=== PATIENT | female | born 1950 | race Caucasian/White ===

== ENCOUNTER 2023-02-28 19:33 | Inpatient (IN) | payer OTHER, MEDICAID ==
[~2023-02-28] VITALS: Ht 165.1 cm; Wt 118.2 kg
[2023-02-28] MEDS ORDERED: SODIUM CHLORIDE 0.9% 500 ML IV ONE (19:45)
[2023-02-28 20:05] LABS: Basophils # (auto) 0.1 10 ^3/uL (0-0.2); Red Cell Distribution Width 16.1 % (11.8-14.3)
[2023-02-28 20:06] LABS: Basophils % (auto) 0.4 % (0.0-2.0); Eosinophils # (auto) 0.1 10 ^3/uL (0-0.8); Eosinophils % (auto) 0.3 % (0.0-7.0); Hematocrit 16.4 % (36.0-46.0); Lymphocytes # (auto) 4.6 10 ^3/uL (0.4-5.4); Lymphocytes % (auto) 25.6 % (10.0-50.0); Mean Corpuscular Hemoglobin 30.9 pg (28.0-32.0); Mean Corpuscular Hgb Conc. 28.6 g/dL (32.0-36.0); Mean Corpuscular Volume 107.8 fL (80.0-100.0); Monocytes # (auto) 0.8 10 ^3/uL (0-1.3); Monocytes % (auto) 4.3 % (0.0-12.0); Neutrophils # (auto) 12.4 10 ^3/uL (1.6-8.6); Neutrophils % (auto) 69.4 % (37.0-80.0); Nucleated Red Blood Cells % 0.2 %; Red Blood Cells 1.53 10^6/uL (4.0-5.20); White Blood Cell 17.9 10^3/uL (4.4-10.8)
[2023-02-28 20:13] LABS: Hemoglobin 4.7 g/dL (12.2-16.2)
[2023-02-28 20:14] LABS: Albumin 1.8 g/dL (3.4-5.0); BUN/Creatinine Ratio 29.2 (10.0-20.0); Calcium 7.2 mg/dL (8.5-10.1); Potassium 4.6 mmol/L (3.5-5.1)
[2023-02-28 20:17] LABS: Bilirubin, Total 0.1 mg/dL (0.2-1.0); Total Protein 3.7 g/dL (6.4-8.2)
[2023-02-28 20:35] VITALS: PULSE 115; RESP 24; O2SAT 98
[2023-02-28] MEDS ORDERED: PANTOPRAZOLE 80 MG in SODIUM CHL 0.9% 100 ML IV ONE (21:00)
[2023-02-28] MEDS ORDERED: cefTRIAXone 1GM/50ML D5W 50 ML IV ONE (21:00)
[2023-02-28] MEDS ORDERED: LACTATED RINGER'S 2,700 ML IV ONE (21:00)
[2023-02-28] MEDS ORDERED: diphenhdrAMINE HCL 50 MG/1 ML VL IV ONE (21:00)
[2023-02-28] MEDS ORDERED: PANTOPRAZOLE 40mg/50ML NS AE 50 ML IV ONE (21:00)
[2023-02-28 21:10] LABS: Magnesium 2.2 mg/dL (1.6-2.6)
[2023-02-28 21:24] LABS: INR 1.15 (0.9-1.15); Partial Thromboplastin Time 24.9 SEC (24.5-34.5)
[2023-02-28 21:50] LABS: Lactic Acid w/Reflex 11.4 mmol/L (0.4-2.0)
[2023-02-28] MEDS ORDERED: PANTOPRAZOLE 40 MG/10 ML VIAL INJ IV ONE ×2 (23:14→23:18)
[2023-03-01] MEDS: SODIUM CHLORIDE 0.9% 1,000 ML IV SCH ×4 (02:45→15:27)
[2023-03-01] MEDS ORDERED: DEXTROSE (50%) 50ML SYRG IV PRN ×2 (02:45→13:45)
[2023-03-01 03:00] LABS: Basophils # (auto) 0 10 ^3/uL (0-0.2); Eosinophils # (auto) 0 10 ^3/uL (0-0.8); Hemoglobin 7.6 g/dL (12.2-16.2)
[2023-03-01 03:02] LABS: Basophils % (auto) 0.2 % (0.0-2.0); Eosinophils % (auto) 0.1 % (0.0-7.0); Hematocrit 22.6 % (36.0-46.0); Lymphocytes # (auto) 1.8 10 ^3/uL (0.4-5.4); Lymphocytes % (auto) 14.5 % (10.0-50.0); Mean Corpuscular Hemoglobin 30.5 pg (28.0-32.0); Mean Corpuscular Hgb Conc. 33.5 g/dL (32.0-36.0); Mean Corpuscular Volume 91.2 fL (80.0-100.0); Monocytes # (auto) 0.7 10 ^3/uL (0-1.3); Neutrophils # (auto) 9.8 10 ^3/uL (1.6-8.6); Neutrophils % (auto) 79.2 % (37.0-80.0); Nucleated Red Blood Cells % 0.1 %; Red Blood Cells 2.48 10^6/uL (4.0-5.20); Red Cell Distribution Width 16.2 % (11.8-14.3); White Blood Cell 12.3 10^3/uL (4.4-10.8)
[2023-03-01] MEDS ORDERED: metroNIDAZOLE 500MG/100ML 100 ML IV ONE (03:15)
[2023-03-01] MEDS ORDERED: NITROGLYCERIN 0.4 MG SL TAB SL PRN (03:30)
[2023-03-01] MEDS ORDERED: ASPirin 81 mg TAB PO ONE (03:30)
[2023-03-01] MEDS ORDERED: ACETAMINOPHEN 325 MG TAB PO PRN (03:30)
[2023-03-01] MEDS ORDERED: ONDANSETRON HCL 4 MG/2 ML VIAL IV PRN (03:30)
[2023-03-01] MEDS ORDERED: MORPHINE SULFATE INJ 2 MG/ml SYRG IV PRN (03:30)
[2023-03-01] MEDS ORDERED: VANCOMYCIN PER PHARMACY 0 MG IV SCH (03:30)
[2023-03-01] MEDS ORDERED: DOCUSATE SOD 100 MG CAP PO PRN (03:30)
[2023-03-01 04:27] LABS: Albumin 1.7 g/dL (3.4-5.0); BUN/Creatinine Ratio 35.8 (10.0-20.0); Bilirubin, Total 0.5 mg/dL (0.2-1.0); Magnesium 1.4 mg/dL (1.6-2.6); Potassium 4.5 mmol/L (3.5-5.1); Total Protein 3.4 g/dL (6.4-8.2)
[2023-03-01] MEDS: ACCU-CHEK COMFORT CURVE STRIP VI SCH ×9 (04:30→22:11)
[2023-03-01] MEDS ORDERED: InsuLIN REG 1unit/0.01ml Soln (100units/ml) ONE (04:48)
[2023-03-01] MEDS: InsuLIN R (HUMAN) 100 UNITS in SODIUM CHL 0.9% 99 ML IV SCH ×2 (05:04→06:04)
[2023-03-01 05:30] LABS: Calcium 5.8 mg/dL (8.5-10.1)
[2023-03-01 05:32] LABS: Urine Bacteria MANY /hpf (None Seen); Urine Blood 3+ /uL (Negative); Urine Hyaline Cast FEW /lpf (0 - 2); Urine Mucus FEW (None Seen); Urine Specific Gravity 1.017 (1.001-1.035); Urine WBC 6 /hpf (0 - 5)
[2023-03-01] MEDS ORDERED: VANCOMYCIN 1GM/250ML 250 ML IV ONE (06:30)
[2023-03-01] MEDS ORDERED: SODIUM BICARBONATE 8.4% INJ 50ML SYRINGE ONE (06:44)
[2023-03-01] MEDS ORDERED: SODIUM CHLORIDE 0.9% 1,000 ML IV SCH (06:45)
[2023-03-01] MEDS ORDERED: LEVOTHYROXINE SODIUM 100 MCG TAB PO SCH (07:00)
[2023-03-01] MEDS: SODIUM BICARBONATE 50ML VIAL 50 ML in SOD CHL 0.45% 1,000 ML IV SCH (07:47)
[2023-03-01] MEDS: ASPirin 81 mg TAB PO SCH ×2 (10:00→10:11)
[2023-03-01] MEDS: FAMOTIDINE (10MG/ML) 2ML VL IV SCH ×2 (10:11→22:22)
[2023-03-01] MEDS: AZITHROMYCIN 500MG/ 250ML 250 ML IV SCH (10:12)
[2023-03-01 10:30] LABS: Potassium 4.6 mmol/L (3.5-5.1)
[2023-03-01 10:33] LABS: BUN/Creatinine Ratio 39.1 (10.0-20.0)
[2023-03-01 10:41] VITALS: PULSE 82; RESP 16; O2SAT 98
[2023-03-01] MEDS: PANTOPRAZOLE 40mg/50ML NS AE 50 ML IV SCH ×3 (13:03→22:22)
[2023-03-01 15:16] LABS: BUN/Creatinine Ratio 33.1 (10.0-20.0); Calcium 7.4 mg/dL (8.5-10.1); Potassium 4.6 mmol/L (3.5-5.1)
[2023-03-01 17:00] VITALS: PULSE 80; RESP 16; O2SAT 98
[2023-03-01] MEDS: InsuLIN REG 1unit/0.01ml Soln (100units/ml) SC SCH ×2 (17:00→22:00)
[2023-03-01] MEDS ORDERED: VANCOMYCIN 1GM/250ML 250 ML IV SCH (19:00)
[2023-03-01 20:25] VITALS: PULSE 82; RESP 18; O2SAT 100
[2023-03-01 21:51] LABS: BUN/Creatinine Ratio 30.8 (10.0-20.0); Calcium 7.6 mg/dL (8.5-10.1); Potassium 4.4 mmol/L (3.5-5.1)
[2023-03-01 22:00] VITALS: BP 141/65; PULSE 81; RESP 17; TEMP 97.9; O2SAT 100
[2023-03-01] MEDS: SUCRALFATE 1 GM/10 ML ORAL SUSP PO SCH (22:23)
[2023-03-01 22:49] VITALS: BP 141/65; PULSE 81; RESP 18; TEMP 97.9; O2SAT 100
[2023-03-01] MEDS ORDERED: LEVO100T8 PO (22:51)
[2023-03-01] MEDS ORDERED: METF-372 PO (22:51)
[2023-03-01] MEDS ORDERED: ALEN70TA74 PO (22:52)
[2023-03-02] VITALS (8 sets, daily range): BP systolic 123–156; BP diastolic 55–83; PULSE 74–84; RESP 17–20; TEMP 97.5–97.9; O2SAT 94–99
[2023-03-02] MEDS: SODIUM CHLORIDE 0.9% 1,000 ML IV SCH ×4 (00:07→17:55)
[2023-03-02] MEDS: PANTOPRAZOLE 40mg/50ML NS AE 50 ML IV SCH ×5 (03:56→22:14)
[2023-03-02] MEDS ORDERED: SODIUM BICARBONATE 8.4 % INJ 50ML VIAL IV ONE (04:14)
[2023-03-02] MEDS: SODIUM BICARBONATE 50ML VIAL 50 ML in SOD CHL 0.45% 1,000 ML IV SCH ×2 (05:08→21:30)
[2023-03-02] MEDS: InsuLIN REG 1unit/0.01ml Soln (100units/ml) SC SCH ×4 (06:01→21:30)
[2023-03-02] MEDS: ACCU-CHEK COMFORT CURVE STRIP VI SCH ×4 (06:01→21:30)
[2023-03-02] MEDS: SUCRALFATE 1 GM/10 ML ORAL SUSP PO SCH ×4 (06:02→22:13)
[2023-03-02 06:30] LABS: Basophils # (auto) 0.1 10 ^3/uL (0-0.2); Basophils % (auto) 0.6 % (0.0-2.0); Eosinophils # (auto) 0.5 10 ^3/uL (0-0.8); Eosinophils % (auto) 4.3 % (0.0-7.0); Hematocrit 25.7 % (36.0-46.0); Hemoglobin 8.7 g/dL (12.2-16.2); Lymphocytes # (auto) 3.6 10 ^3/uL (0.4-5.4); Lymphocytes % (auto) 31.9 % (10.0-50.0); Mean Corpuscular Hemoglobin 30.8 pg (28.0-32.0); Mean Corpuscular Hgb Conc. 33.8 g/dL (32.0-36.0); Monocytes # (auto) 0.6 10 ^3/uL (0-1.3); Monocytes % (auto) 5.6 % (0.0-12.0); Neutrophils # (auto) 6.5 10 ^3/uL (1.6-8.6); Neutrophils % (auto) 57.6 % (37.0-80.0); Nucleated Red Blood Cells % 0.1 %; Red Blood Cells 2.82 10^6/uL (4.0-5.20); Red Cell Distribution Width 16.8 % (11.8-14.3); White Blood Cell 11.3 10^3/uL (4.4-10.8)
[2023-03-02 07:00] LABS: Potassium 3.7 mmol/L (3.5-5.1)
[2023-03-02 07:05] LABS: Albumin 2.2 g/dL (3.4-5.0); BUN/Creatinine Ratio 25.7 (10.0-20.0); Calcium 7.4 mg/dL (8.5-10.1)
[2023-03-02 07:07] LABS: Bilirubin, Total 0.3 mg/dL (0.2-1.0); Total Protein 4.3 g/dL (6.4-8.2)
[2023-03-02] MEDS ORDERED: LIDOCAINE VISCOUS 2% 15ML UD ONE (08:21)
[2023-03-02] MEDS ORDERED: SODIUM CHLORIDE LOCK 10 ML ONE (08:21)
[2023-03-02] MEDS ORDERED: diphenhdrAMINE HCL 50 MG/1 ML VL ONE (08:22)
[2023-03-02] MEDS ORDERED: MIDAZOLAM HCL 5 MG/ML-1ML VIAL ONE (08:22)
[2023-03-02] MEDS ORDERED: fentaNYL CITRATE 100 MCG/2 ML VL ONE (08:22)
[2023-03-02] MEDS ORDERED: VANCOMYCIN 1GM/250ML 250 ML IV SCH (10:00)
[2023-03-02] MEDS: LEVOTHYROXINE SODIUM 100 MCG/5 ML INJ IV SCH (10:29)
[2023-03-02] MEDS: FAMOTIDINE (10MG/ML) 2ML VL IV SCH (10:29)
[2023-03-02] MEDS: AZITHROMYCIN 500MG/ 250ML 250 ML IV SCH (10:29)
[2023-03-02] MEDS: HYDROcodone-ACET 5/325MG TAB PO PRN (10:52)
[2023-03-02] MEDS ORDERED: NALOXONE HCL 0.4 MG/ML VIAL ONE (11:14)
[2023-03-02] MEDS ORDERED: FLUMAZENIL 0.1 MG/ML INJ 10ML MDV IV ONE (11:14)
[2023-03-02] MEDS ORDERED: cefTRIAXone 1GM/50ML D5W 50 ML IV ONE (14:00)
[2023-03-02] MEDS: DOXYCYCLINE 100 MG TAB/CAP PO SCH (22:13)
[2023-03-03] VITALS (7 sets, daily range): BP systolic 129–156; BP diastolic 64–74; PULSE 69–87; RESP 17–20; TEMP 97.8–98.2; O2SAT 96–98
[2023-03-03] MEDS: PANTOPRAZOLE 40mg/50ML NS AE 50 ML IV SCH ×4 (03:40→18:34)
[2023-03-03] MEDS: SODIUM CHLORIDE 0.9% 1,000 ML IV SCH ×2 (03:41→07:25)
[2023-03-03 05:24] LABS: Basophils # (auto) 0.1 10 ^3/uL (0-0.2); Basophils % (auto) 0.9 % (0.0-2.0); Eosinophils # (auto) 0.6 10 ^3/uL (0-0.8); Eosinophils % (auto) 5.7 % (0.0-7.0); Hematocrit 27.5 % (36.0-46.0); Hemoglobin 9.1 g/dL (12.2-16.2); Lymphocytes # (auto) 3.2 10 ^3/uL (0.4-5.4); Lymphocytes % (auto) 32.1 % (10.0-50.0); Mean Corpuscular Hemoglobin 31.2 pg (28.0-32.0); Mean Corpuscular Volume 94.4 fL (80.0-100.0); Monocytes # (auto) 0.5 10 ^3/uL (0-1.3); Monocytes % (auto) 4.9 % (0.0-12.0); Neutrophils # (auto) 5.6 10 ^3/uL (1.6-8.6); Neutrophils % (auto) 56.4 % (37.0-80.0); Nucleated Red Blood Cells % 0.1 %; Red Blood Cells 2.92 10^6/uL (4.0-5.20); Red Cell Distribution Width 17.4 % (11.8-14.3); White Blood Cell 9.9 10^3/uL (4.4-10.8)
[2023-03-03 05:35] LABS: Albumin 2.2 g/dL (3.4-5.0); Calcium 7.4 mg/dL (8.5-10.1); Potassium 3.8 mmol/L (3.5-5.1)
[2023-03-03 05:37] LABS: BUN/Creatinine Ratio 11.3 (10.0-20.0); Bilirubin, Total 0.3 mg/dL (0.2-1.0); Total Protein 4.8 g/dL (6.4-8.2)
[2023-03-03] MEDS: ACCU-CHEK COMFORT CURVE STRIP VI SCH ×4 (06:03→21:07)
[2023-03-03] MEDS: InsuLIN REG 1unit/0.01ml Soln (100units/ml) SC SCH ×5 (06:04→21:18)
[2023-03-03] MEDS: SUCRALFATE 1 GM/10 ML ORAL SUSP PO SCH ×4 (06:17→21:09)
[2023-03-03] MEDS: LEVOTHYROXINE SODIUM 100 MCG/5 ML INJ IV SCH (09:05)
[2023-03-03] MEDS: cefTRIAXone 1GM/50ML D5W 50 ML IV SCH (09:11)
[2023-03-03] MEDS: DOXYCYCLINE 100 MG TAB/CAP PO SCH ×2 (09:13→21:09)
[2023-03-03] MEDS: HYDROcodone-ACET 5/325MG TAB PO PRN (21:17)
[2023-03-04] VITALS (7 sets, daily range): BP systolic 135–153; BP diastolic 48–66; PULSE 72–78; RESP 17–22; TEMP 97.7–98.5; O2SAT 97–100
[2023-03-04] MEDS: PANTOPRAZOLE 40mg/50ML NS AE 50 ML IV SCH ×3 (00:11→09:41)
[2023-03-04 05:56] LABS: Basophils # (auto) 0.1 10 ^3/uL (0-0.2); Basophils % (auto) 0.8 % (0.0-2.0); Eosinophils # (auto) 0.3 10 ^3/uL (0-0.8); Eosinophils % (auto) 4.1 % (0.0-7.0); Hematocrit 26.5 % (36.0-46.0); Hemoglobin 8.9 g/dL (12.2-16.2); Lymphocytes # (auto) 2.8 10 ^3/uL (0.4-5.4); Lymphocytes % (auto) 34.1 % (10.0-50.0); Mean Corpuscular Hgb Conc. 33.6 g/dL (32.0-36.0); Mean Corpuscular Volume 92.3 fL (80.0-100.0); Monocytes # (auto) 0.5 10 ^3/uL (0-1.3); Monocytes % (auto) 6.6 % (0.0-12.0); Neutrophils # (auto) 4.4 10 ^3/uL (1.6-8.6); Neutrophils % (auto) 54.4 % (37.0-80.0); Red Blood Cells 2.88 10^6/uL (4.0-5.20); Red Cell Distribution Width 16.5 % (11.8-14.3); White Blood Cell 8.1 10^3/uL (4.4-10.8)
[2023-03-04] MEDS: InsuLIN REG 1unit/0.01ml Soln (100units/ml) SC SCH ×4 (06:00→21:41)
[2023-03-04] MEDS: ACCU-CHEK COMFORT CURVE STRIP VI SCH ×4 (06:00→22:48)
[2023-03-04 06:05] LABS: Potassium 3.5 mmol/L (3.5-5.1)
[2023-03-04 06:13] LABS: Albumin 2.4 g/dL (3.4-5.0); BUN/Creatinine Ratio 7.2 (10.0-20.0); Bilirubin, Total 0.4 mg/dL (0.2-1.0); Calcium 8.4 mg/dL (8.5-10.1); Total Protein 4.9 g/dL (6.4-8.2)
[2023-03-04] MEDS: HYDROcodone-ACET 5/325MG TAB PO PRN (06:36)
[2023-03-04] MEDS: SUCRALFATE 1 GM/10 ML ORAL SUSP PO SCH ×4 (06:36→21:38)
[2023-03-04] MEDS: cefTRIAXone 1GM/50ML D5W 50 ML IV SCH (09:40)
[2023-03-04] MEDS: LEVOTHYROXINE SODIUM 100 MCG/5 ML INJ IV SCH (09:41)
[2023-03-04] MEDS: DOXYCYCLINE 100 MG TAB/CAP PO SCH ×2 (09:41→21:38)
[2023-03-04] MEDS ORDERED: LEVOTHYROXINE SODIUM 100 MCG/5 ML INJ IV SCH (11:30)
[2023-03-04] MEDS ORDERED: LEVOTHYROXINE SODIUM 100 MCG/5 ML INJ IV ONE (11:30)
[2023-03-04] MEDS: PANTOPRAZOLE 40 MG TAB PO SCH (21:37)
[2023-03-05 05:00] VITALS: BP 139/66; PULSE 84; RESP 19; TEMP 98.2; O2SAT 96
[2023-03-05] MEDS: SUCRALFATE 1 GM/10 ML ORAL SUSP PO SCH ×2 (06:21→11:44)
[2023-03-05] MEDS: ACCU-CHEK COMFORT CURVE STRIP VI SCH ×2 (06:22→11:44)
[2023-03-05] MEDS: InsuLIN REG 1unit/0.01ml Soln (100units/ml) SC SCH ×2 (06:46→11:47)
[2023-03-05 06:59] LABS: Basophils # (auto) 0.1 10 ^3/uL (0-0.2); Basophils % (auto) 0.9 % (0.0-2.0); Eosinophils # (auto) 0.5 10 ^3/uL (0-0.8); Eosinophils % (auto) 5.8 % (0.0-7.0); Hematocrit 27.7 % (36.0-46.0); Hemoglobin 9.4 g/dL (12.2-16.2); Lymphocytes # (auto) 2.8 10 ^3/uL (0.4-5.4); Lymphocytes % (auto) 33.7 % (10.0-50.0); Mean Corpuscular Hemoglobin 31.3 pg (28.0-32.0); Mean Corpuscular Volume 91.9 fL (80.0-100.0); Monocytes # (auto) 0.6 10 ^3/uL (0-1.3); Neutrophils # (auto) 4.4 10 ^3/uL (1.6-8.6); Neutrophils % (auto) 52.6 % (37.0-80.0); Red Blood Cells 3.01 10^6/uL (4.0-5.20); Red Cell Distribution Width 16.7 % (11.8-14.3); White Blood Cell 8.3 10^3/uL (4.4-10.8)
[2023-03-05 07:12] LABS: Albumin 2.5 g/dL (3.4-5.0); BUN/Creatinine Ratio 5.6 (10.0-20.0); Calcium 8.5 mg/dL (8.5-10.1); Potassium 3.5 mmol/L (3.5-5.1)
[2023-03-05 07:15] LABS: Bilirubin, Total 0.4 mg/dL (0.2-1.0); Total Protein 5.2 g/dL (6.4-8.2)
[2023-03-05 08:00] VITALS: BP 150/65; PULSE 74; PULSE 77; RESP 18; TEMP 97.8; O2SAT 98
[2023-03-05 09:00] VITALS: BP 150/65; PULSE 77; RESP 18; TEMP 97.8; O2SAT 98
[2023-03-05] MEDS: PANTOPRAZOLE 40 MG TAB PO SCH (09:15)
[2023-03-05] MEDS: DOXYCYCLINE 100 MG TAB/CAP PO SCH (09:15)
[2023-03-05] MEDS: cefTRIAXone 1GM/50ML D5W 50 ML IV SCH (09:16)
[2023-03-05] MEDS ORDERED: LEVO150T10 PO (09:45)
[2023-03-05] MEDS ORDERED: SUCR1TAB PO (09:45)
[2023-03-05] MEDS ORDERED: PANT40T PO (09:45)
[2023-03-05] MEDS ORDERED: LEVO500T91 PO (09:45)
[2023-03-05] MEDS ORDERED: FERR-7 PO (09:46)
[2023-03-05] MEDS ORDERED: LEVOTHYROXINE SODIUM 100 MCG/5 ML INJ IV SCH (10:00)
[2023-03-05 10:38] VITALS: TEMP 36.6
== END 2023-03-05 11:53 | disposition home or self-care (01) | DRG 871 ==
LOC: ER 19:33 → EDBD 19:33 → TELE 03-01 03:30 → TELE-EAST 03-01 20:30
PROVIDERS: ADMIT Family Medicine; ATTEND Family Medicine
PROC: 30233N1 Transfusion of Nonautologous Red Blood Cells into Peripheral Vein, Percutaneous Approach (ICD-10-PCS; principal; 2023-02-28)
PROC: 0DB98ZX Excision of Duodenum, Via Natural or Artificial Opening Endoscopic, Diagnostic (ICD-10-PCS; 2023-03-02)
PROC: 0DB78ZX Excision of Stomach, Pylorus, Via Natural or Artificial Opening Endoscopic, Diagnostic (ICD-10-PCS; 2023-03-02)
DX: A41.9 Sepsis, unspecified organism (principal); E11.10 Type 2 diabetes mellitus with ketoacidosis without coma; R65.21 Severe sepsis with septic shock; K26.4 Chronic or unspecified duodenal ulcer with hemorrhage; K85.90 Acute pancreatitis without necrosis or infection, unspecified; K29.71 Gastritis, unspecified, with bleeding; K25.4 Chronic or unspecified gastric ulcer with hemorrhage; K29.81 Duodenitis with bleeding; J18.9 Pneumonia, unspecified organism; N17.9 Acute kidney failure, unspecified; N13.6 Pyonephrosis; D62 Acute posthemorrhagic anemia; E03.9 Hypothyroidism, unspecified; E66.9 Obesity, unspecified; Z68.26 Body mass index [BMI] 26.0-26.9, adult; D50.0 Iron deficiency anemia secondary to blood loss (chronic); K31.7 Polyp of stomach and duodenum; E78.5 Hyperlipidemia, unspecified; E86.0 Dehydration; E87.8 Other disorders of electrolyte and fluid balance, not elsewhere classified; E88.09 Other disorders of plasma-protein metabolism, not elsewhere classified; I10 Essential (primary) hypertension; K76.0 Fatty (change of) liver, not elsewhere classified; G89.29 Other chronic pain; R79.89 Other specified abnormal findings of blood chemistry; K21.9 Gastro-esophageal reflux disease without esophagitis; Z80.8 Family history of malignant neoplasm of other organs or systems; Z88.0 Allergy status to penicillin; Z90.49 Acquired absence of other specified parts of digestive tract
CPT/HCPCS: 36415; 36430; 36600; 43239; 71045; 74176; 76642; 80048; 80053; 81001; 82010; 82805; 82962; 83036; 83605; 83615; 83690; 83735; 83880; 83930; 84100; 84155; 84165; 84439; 84443; 84484; 85025; 85045; 85610; 85730; 86850; 86880; 86900; 86901; 86920; 87040; 87086; 93005; 93306; 96361; 96365; 96366; 96367; 99291; C9113; G0378; J0696; J1815; J2250; J3490

== ENCOUNTER 2023-12-14 11:20 | Emergency (ER) | payer OTHER, MEDICAID ==
[~2023-12-14] VITALS: Ht 165.1 cm; Wt 73.6 kg
[~2023-12-14 11:20] MED LIST: ALEN70TA74 PO; FERR-7 PO; LEVO100T8 PO; LEVO150T10 PO; LEVO500T91 PO; METF-372 PO; PANT40T PO; SUCR1TAB PO
[2023-12-14 15:24] LABS: Urine Bacteria FEW /hpf (None Seen); Urine Blood TRACE /uL (Negative); Urine Clarity Turbid (Clear); Urine Color Light-Yellow (Yellow); Urine Mucus FEW (None Seen); Urine Protein, UAD TRACE (Negative); Urine Specific Gravity 1.018 (1.001-1.035); Urine Urobilinogen Normal (Negative); Urine WBC 397 /hpf (0 - 5)
[2023-12-14] MEDS ORDERED: LEVO500T91 PO (15:44)
[2023-12-14 15:50] VITALS: BP 121/55; PULSE 83; RESP 15; TEMP 97.9; O2SAT 98
== END 2023-12-14 15:58 | disposition home or self-care (01) ==
LOC: EDBD 11:20 → ER 11:20 → EDUNIT# 11:20 → ER 15:58
DX: R91.1 Solitary pulmonary nodule (principal); N39.0 Urinary tract infection, site not specified; E11.9 Type 2 diabetes mellitus without complications; Z90.49 Acquired absence of other specified parts of digestive tract; Z88.0 Allergy status to penicillin
CPT/HCPCS: 74176; 81001

== ENCOUNTER 2024-10-10 17:49 | Inpatient (IN) | payer OTHER, MEDICAID ==
[~2024-10-10] VITALS: Ht 152.4 cm; Wt 75.0 kg
--- NOTE | 2024-10-10 18:01 | ECG ---
[facility] Test Date: 2024-10-10 Test Time: 17:56:44 Pat Name: KIN MCCLELLAND Department: ER Room: Gender: F Machine Cutter: LUZ : 1950 Requested By: CADE ROSENBERG Order Number: [id number] Reading MD: Measurements Intervals [place] Rate: 84 P: 44 UT: 170 QRS: -17 QRSD: 89 T: 53 QT: 391 QTc: 463 Interpretive Statements Sinus rhythm Ventricular premature complex Borderline left axis deviation Anterior infarct, old Please click the below link to view image of tracing.
--- NOTE | 2024-10-10 18:05 | ED.PDOC ---
HPI Comments 74 y.o female with PMHx of DM, hyperlipidemia and thyroid disease, presents to the ED for a chief complaint of right sided chest pain associated with chills that started earlier today. Patient went to urgent care and 911 was called due to ongoing chest pain. Patient describes pain as sharp, intermittent, non radiating and has no alleviating or precipitating factors. Patient denies any active pain at this time, nausea, vomiting, fever, leg swellings. She also denies substance or alcohol use and quit tobacco use one year ago. Chief Complaint: Chest Pain Time Seen by MD: 17:50 Primary Care Provider: TRIPP Reviewed Notes: Nurses Notes, Medications, Allergies Allergies: Coded Allergies: Penicillins (Verified Allergy, Mild, 03/02/23) SPOKE TO PT. PER PT, TRIED PCN BY MOUTH >10 YEARS AGO, EXPERIENCED ABDOMINAL PAIN, NAUSEA/VOMITING. DENIED SOB, FACIAL/TONGUE SWELLING. NEVER RE-CHALLENGED WITH PCN OR CEPHALOSPORIN - LONNIE T 03/02/23 Uncoded Allergies: ALL CILLIN'S (Allergy, Severe, 10/10/24) Home Meds Active Scripts Levofloxacin Hemihydrate (LEVAQUIN 500 MG) 500 Mg Tab, 500 MG PO DAILY for 7 Days, #7 TAB Prov:RACHEL WARD MD 12/14/23 Ferrous Sulfate (Iron) 325 Mg Tab, 325 MG PO BID, #180 TAB Prov:MARK WORLEY MD 03/05/23 Levothyroxine Sodium (Levothyroxine Sodium) 150 Mcg Tab, 1 TAB PO DAILY, #90 TAB 1 Refill Prov:MARK WORLEY MD 03/05/23 Levofloxacin Hemihydrate (LEVAQUIN 500 MG) 500 Mg Tab, 1 TAB PO DAILY, #7 TAB Prov:MARK WORLEY MD 03/05/23 Sucralfate (Sucralfate) 1 Gm Tab, 1 GM PO QID, #120 TAB Prov:MARK WORLEY MD 03/05/23 Pantoprazole Sodium Sesquihydr (Pantoprazole Sodium) 40 Mg Tab, 40 MG PO BID, #60 TAB Prov:MARK WORLEY MD 03/05/23 Reported Medications Alendronate Sodium (Alendronate Sodium) 70 Mg Tab, 1 TAB PO QWEEKLY, #4 TAB 3 Refills 03/01/23 Metformin Hydrochloride (Metformin Hcl) 1,000 Mg Tab, 1 TAB PO BID 03/01/23 Levothyroxine Sodium (Levothyroxine Sodium) 100 Mcg Tab, 1 TAB PO QAM 03/01/23 Information Source: Patient, Emergency Med Personnel Mode of Arrival: EMS Severity: Moderate Timing: Hours Duration: Since onset Location: Chest (R) Radiation: No Radiation Quality: Sharp Onset: At Rest Cardiac Risk Factors: Smoker, Hyperlipidemia, HTN PE Risk Factors: None History of: None Modifying Factors: Nothing Associated Signs and Symptoms: Other Past Medical History PAST MEDICAL HISTORY: DM, High Lipids, Thyroid, UTI'S Surgical History: Cholecystectomy, Tonsillectomy, Tubal Ligation LITERATURE PROFESSOR History: No Pertinent LITERATURE PROFESSOR History Family History Family History: Family hx of Cancer Social History Smoker: Quit Greater Than 1 Year, Cigarettes Alcohol: Rarely Drugs: Denies Drug Use Lives In: Home Constitutional: reports: chills; denies: diaphoresis, fatigue, fever, malaise, sweats, weakness, others EENTM: denies: blurred vision, double vision, ear bleeding, ear discharge, ear drainage, ear pain, ear ringing, eye pain, eye redness, hearing loss, mouth pain, mouth swelling, nasal discharge, nose bleeding, nose congestion, nose pain, photophobia, tearing, throat pain, throat swelling, voice changes, others Respiratory: denies: cough, hemoptysis, orthopnea, SOB at rest, shortness of breath, SOB with excertion, stridor, wheezing, others Cardiovascular: reports: chest pain; denies: dizzy spells, diaphoresis, Dyspnea on exertion, edema, irregular heart beat, left arm pain, lightheadedness, palpi tations, PND, syncope, others Gastrointestinal: denies: abdomen distended, abdominal pain, blood streaked bowels, constipated, diarrhea, dysphagia, difficulty swallowing, hematemesis, melena, nausea, poor appetite, poor fluid intake, rectal bleeding, rectal pain, vomiting, others Genitourinary: denies: abnormal vagina bleeding, burning, dyspareunia, dysuria, flank pain, frequency, hematuria, incontinence, pain, , vagina discharge, urgency, others Neurological: denies: dizziness, fainting, headache, left sided numbness, left sided weakness, numbness, paresthesia, pre-existing deficit, right sided numbness, right sided weakness, seizure, speech problems, tingling, tremors, weakness, others Musculoskeletal: denies: back pain, gout, joint pain, joint swelling, muscle pain, muscle stiffness, neck pain, others Integumetry: denies: bruises, change in color, change in hair/nails, dryness, laceration, lesions, lumps, rash, wounds, others Allergic/Immunocompromised: denies: Difficulty Healing, Frequent Infections, Hives, Itching, others Hematologic/Lymphatic: denies: anemia, blood clots, easy bleeding, easy bru ising, swollen glands, others Endocrine: denies: excessive hunger, excessive sweating, excessive thirst, e xcessive urination, flushing, intolerance to cold, intolerance to heat, unexplained weight gain, unexplained weight loss, others Psychiatric: denies: anxiety, bipolar disorder, depression, hopeless, panic disorder, schizophrenia, sleepless, suicidal, others All Other Systems: Reviewed and Negative Physical Exam General Appearance: Moderate Distress HEENT: Normal ENT Inspection, Pharynx Normal, TMs Normal Neck: Full Range of Motion, Non-Tender, Normal, Normal Inspection Respiratory: Chest Non-Tender, Lungs Clear, No Accessory Muscle Use, No Respiratory Distress, Normal Breath Sounds Cardiovascular: No Edema, No JVD, No Murmur, No Gallop, Normal Peripheral Pulses, Regular Rate/Rhythm Breast Exam: Deferred Gastrointestinal: No Organomegaly, Non Tender, No Pulsatile Mass, Normal Bowel Sounds, Soft Genitalia: Deferred Pelvic: Deferred Rectal: Deferred Extremities: No calf tenderness, Normal capillary refill, Normal inspection, Normal range of motion, Non-tender, No pedal edema Musculoskeletal : Apperance: Normal Neurologic: Alert, urban renewal manager II-XII nml as Tested, Motor Weakness, Normal Affect, Normal Mood, No Sensory Deficits Cerebellar Function: Normal Reflexes: Normal Skin: Dry, Normal Color, Warm Lymphatic: No Adenopathy EKG EKG : Pulse Rate (adult): 84 [place]: LAD Cardiac Rhythm: NSR Was a procedure done? Was a procedure done?: No CP Differential Dx Differential Diagnosis: Angina, ME, Pulmonary Embolus Differential Diagnosis: Angina, Chest Wall Pain, Cholelithiasis, Costochondritis, Esophageal reflux/spasm, Myocardial Infarction, Pericarditis X-Ray, Labs, Meds, VS Vital Signs Date Time Temp Pulse Resp B/P (MAP) Pulse Ox O2 Delivery O2 Flow Rate FiO2 10/10/24 18:31 98.0 84 18 137/75 (95) 96 98.0 10/10/24 18:10 Room Air* 0 21 10/10/24 18:05 84 10/10/24 17:56 84 10/10/24 17:56 97.9 95 18 118/74 (89) 99 Lab Test 10/10/24 19:47 10/10/24 19:38 10/10/24 18:38 Range/Units Troponin I High Sensitivity < 3 L < 3 L </=34 ng/L Urine Color Yellow Yellow Urine Clarity Clear Clear Urine pH 6.5 5.0-9.0 Urine Specific [place] 1.028 1.001-1.035 Urine Protein Trace H Negative Urine Ketones 1+ H Negative Urine Blood Negative Negative /uL Urine Nitrite Negative Negative Urine Bilirubin Negative Negative Urine Urobilinogen Normal Negative mg/dL Urine Leukocyte Esterase 1+ Negative /uL Urine RBC 1 0 - 4 /hpf Urine Microscopic WBC 7 H 0-5 /HPF Urine Squamous Epithelial Cells Few <5 /hpf Urine Bacteria Few H None Seen /hpf Urine Yeast (Budding) Occasional None Seen /hpf Urine Glucose 4+ H Normal mg/dL White Blood Count 11.9 H 4.4-10.8 10^3/uL Red Blood Count 4.98 4.0-5.20 10^6/uL Hemoglobin 16.2 12.2-16.2 g/dL Hematocrit 46.6 H 36.0-46.0 % Mean Corpuscular Volume 93.6 80.0-100.0 fL Mean Corpuscular Hemoglobin 32.6 H 28.0-32.0 pg Mean Corpuscular Hemoglobin Concent 34.8 32.0-36.0 g/dL Red Cell Distribution Width 13.4 11.8-14.3 % Platelet Count 198 140-450 10^3/uL Mean Platelet Volume 10.4 6.9-10.8 fL Neutrophils (%) (Auto) 64.0 37.0-80.0 % Lymphocytes (%) (Auto) 25.6 10.0-50.0 % Monocytes (%) (Auto) 6.5 0.0-12.0 % Eosinophils (%) (Auto) 3.2 0.0-7.0 % Basophils (%) (Auto) 0.7 0.0-2.0 % Neutrophils # (Auto) 7.6 1.6-8.6 10 ^3/uL Lymphocytes # (Auto) 3.0 0.4-5.4 10 ^3/uL Monocytes # (Auto) 0.8 0-1.3 10 ^3/uL Eosinophils # (Auto) 0.4 0-0.8 10 ^3/uL Basophils # (Auto) 0.1 0-0.2 10 ^3/uL Nucleated Red Blood Cells 0.1 % Sodium Level 138 136-145 mmol/L Potassium Level 4.8 3.5-5.1 mmol/L Chloride Level 100 98-107 mmol/L Carbon Dioxide Level 27 20-31 mmol/L Anion Gap 11 5-15 Blood Urea Nitrogen 14 9-23 mg/dL Creatinine 1.34 H 0.550-1.02 mg/dL Glomerular Filtration Rate Calc 42 >90 mL/min BUN/Creatinine Ratio 10.4 10.0-20.0 Serum Glucose 287 H 74-106 mg/dL Calcium Level 10.2 8.7-10.4 mg/dL Current Medications Medications (Trade) Dose Ordered Sig/Vanessa Route Start Time Stop Time Status Last Admin Aspirin 162 mg ONCE ONCE PO 10/10/24 18:00 10/10/24 18:01 DC 10/10/24 18:21 The patient's CBC shows an elevated white blood cell count of 11.9 The chemistry panel is within normal limits except for creatinine of 0.34 The patient was given aspirin 162 mg by mouth The patient's urine is positive for UTI We did order Rocephin 1 g IV piggyback The patient was being admitted to the hospitalist at this time The chest x-ray shows: No sign of any abnormalities The patient was admitted Images Reviewed?: Images reviewed and evaluated by me Time of 1ST Reevaluation: 18:01 Reevaluation 1ST: Unchanged Patient Education/Counseling: Diagnosis, Treatment, Prognosis Family Education/Counseling: No Family Present Departure 1 Departure Time of Disposition: 20:51 Impression: Primary Impression: Acute coronary syndrome Disposition: ADMITTED INPATIENT Admit to: [facility] Condition: Fair Critical Care Note Critical Care Time?: Yes (35 min-critical care time only) Stability Stability form required: Yes Unstable for transfer: Telemetry monitoring (Telemetry monitoring required), ED Physician Assesment (Clinical assesment) Heart Score Heart Score: Heart Score Response (Comments) Value History Moderate Suspicious 1 EKG Normal 0 Age >65 2 Risk Factors >3 or Hx ASHD 2 Troponin Normal limit 0 Total 5 I personally scribed for CADE ROSENBERG MD ([email or web address]) on 10/10/24 at 18:05. Electronically submitted by Daphne Escobedo ([facility]). CADE ROSENBERG MD Oct 10, 2024 18:05
[2024-10-10] MEDS: ASPirin 81 mg TAB PO ONE (18:21)
[2024-10-10 18:31] VITALS: BP 137/75; PULSE 84; RESP 18; TEMP 98; O2SAT 96
[2024-10-10 18:58] LABS: Basophils # (auto) 0.1 10 ^3/uL (0-0.2); Basophils % (auto) 0.7 % (0.0-2.0); Eosinophils # (auto) 0.4 10 ^3/uL (0-0.8); Eosinophils % (auto) 3.2 % (0.0-7.0); Hematocrit 46.6 % (36.0-46.0); Hemoglobin 16.2 g/dL (12.2-16.2); Lymphocytes % (auto) 25.6 % (10.0-50.0); Mean Corpuscular Hemoglobin 32.6 pg (28.0-32.0); Mean Corpuscular Hgb Conc. 34.8 g/dL (32.0-36.0); Mean Corpuscular Volume 93.6 fL (80.0-100.0); Monocytes # (auto) 0.8 10 ^3/uL (0-1.3); Monocytes % (auto) 6.5 % (0.0-12.0); Neutrophils # (auto) 7.6 10 ^3/uL (1.6-8.6); Nucleated Red Blood Cells % 0.1 %; Platelet Count (auto) 198 10^3/uL (140-450); Red Blood Cells 4.98 10^6/uL (4.0-5.20); Red Cell Distribution Width 13.4 % (11.8-14.3); White Blood Cell 11.9 10^3/uL (4.4-10.8)
[2024-10-10 19:19] LABS: Chloride 100 mmol/L (98-107); Potassium 4.8 mmol/L (3.5-5.1); Sodium 138 mmol/L (136-145)
--- NOTE | 2024-10-10 19:19 | DVH ---
CHEST RADIOGRAPH Indication: cp Technique: Single frontal view of the chest was obtained COMPARISON: XY CHEST PORTABLE on DOS: 02/28/23 FINDINGS: Lines and Tubes: None Lungs: Clear Pleura: No effusion. No pneumothorax. Cardiomediastinal contours: Unremarkable IMPRESSION: No abnormality demonstrated.
[2024-10-10 19:20] LABS: Anion Gap 11 (5-15); Carbon Dioxide 27 mmol/L (20-31)
[2024-10-10 19:21] LABS: Calcium 10.2 mg/dL (8.7-10.4)
[2024-10-10 19:25] LABS: BUN/Creatinine Ratio 10.4 (10.0-20.0); Blood Urea Nitrogen 14 mg/dL (9-23)
[2024-10-10 19:35] LABS: Glucose 287 mg/dL (74-106)
[2024-10-10 20:07] LABS: Urine Bacteria FEW /hpf (None Seen); Urine Blood Negative /uL (Negative); Urine Budding Yeast OCCASIONAL /hpf (None Seen); Urine Clarity Clear (Clear); Urine Color Yellow (Yellow); Urine Protein, UAD TRACE (Negative); Urine Specific Gravity 1.028 (1.001-1.035); Urine Squamous Epithelial Cell FEW /hpf (<5); Urine Urobilinogen Normal (Negative); Urine WBC 7 /HPF (0-5); Urine pH 6.5 (5.0-9.0)
[2024-10-10] MEDS ORDERED: MORPHINE SULFATE INJ 2 MG/ml SYRG IV PRN (21:15)
[2024-10-10] MEDS ORDERED: DEXTROSE (50%) 50ML SYRG IV PRN (21:15)
[2024-10-10] MEDS ORDERED: NITROGLYCERIN 0.4 MG SL TAB SL PRN (21:15)
--- NOTE | 2024-10-10 21:18 | DVHHPRES ---
History of Present Illness Resident Creating Document: CHRIS WILLIS RESIDENT History of Present Illness This is a 74 year old female with a past medical history of diabetes, psoriatic arthritis, UTI, urge incontinence, hyperlipidemia and hypothyroidism who presented to ED with chief complaint of retrosternal nonradiating oppressive chest pain in functional class IV which lasted approximately 5 minutes, had 3 episodes today, spontaneously resolved while at rest, with no exacerbating factors associated with dyspnea during episodes of chest pain. Patient also complained of dysuria and urinary frequency. Patient said she never had this type of pain in her past thus prompting her visit to urgent care where she was referred to the emergency room. Completed EKG showed normal sinus rhythm with no ST alteration and old septal infarct, troponins x3 negative. Denies any other associated symptoms. Past medical history: Diabetes, dyslipidemia, psoriatic arthritis, rheumatoid arthritis, osteoporosis, presents chronic back pain, anemia, recurrent uti, urge incontinence, GERD and hypothyroidism Surgical history: Cholecystectomy Family history: Noncontributory Social history: Lives in [place] with daughter who aids her, patient normally mobilizes with a cane. Ex tobacco abuse (40 pack-year history of smoking). Denies current tobacco, alcohol and other drug abuse Allergies: Penicillins Home medication: Alendronate 70 mg p.o. weekly, ferrous sulfate, metformin 1000 mg p.o. b.i.d., pantoprazole 40 mg p.o. daily, sucralfate 1 g p.o. q.i.d. Cardiovascular: hyperipidemia Rheumatologic: Other (psoriatic arthritis) Endocrine: Diabetes Past Medical History See HPI Family History: Arthritis Review of Systems Constitutional: No: Fever, Chills, Sweats, Weakness, Malaise, Other Eyes: No: Pain, Vision change, Conjunctivae inflammation, Eyelid inflammation, Other, Redness ENT: No: Ear pain, Ear discharge, Nose pain, Nose discharge, Nose congestion, Mouth pain, Mouth swelling, Throat pain, Throat swelling, Other Respiratory: Shortness of breath, Other; No: Cough, Dry, SOB with excertion, Wheezing, Hemoptysis, Pleuritic Pain, Sputum, Wheezing Cardiovascular: Chest Pain, Palpitations; No: Orthopnea, Paroxysmal Noc. Dyspnea, Edema, Lt Headedness, Other Gastrointestinal: No: Nausea, Vomiting, Abdominal Pain, Diarrhea, Constipation, Melena, Hematochezia, Other Genitourinary: No Dysuria, No Frequency, No Incontinence, No Hematuria, No Retention, No Other Musculoskeletal: No: other, neck pain, shoulder pain, arm pain, back pain, hand pain, leg pain, foot pain Skin: No: Rash, Lesions, Jaundice, Bruising, Other Neurological: No: Weakness, Numbness, Incoordination, Change in speech, Confusion, Seizures, Other Allergies: Coded Allergies: Penicillins (Verified Allergy, Mild, 03/02/23) SPOKE TO PT. PER PT, TRIED PCN BY MOUTH >10 YEARS AGO, EXPERIENCED ABDOMINAL PAIN, NAUSEA/VOMITING. DENIED SOB, FACIAL/TONGUE SWELLING. NEVER RE-CHALLENGED WITH PCN OR CEPHALOSPORIN - LONNIE T 03/02/23 Uncoded Allergies: ALL CILLIN'S (Allergy, Severe, 10/10/24) Medications Current Medications Medications Dose Ordered Sig/Vanessa Route Start Time Stop Time Status Last Admin Dose Admin Nitroglycerin 0.4 mg Q5MINP PRN SL 10/10/24 21:15 UNV Morphine Sulfate 2 mg Q30M PRN IV 10/10/24 21:15 UNV Exam Vital Signs Vital Signs Date Time Temp Pulse Resp B/P (MAP) Pulse Ox O2 Delivery O2 Flow Rate FiO2 10/10/24 18:31 98.0 84 18 137/75 (95) 96 98.0 10/10/24 18:10 Room Air* 0 21 General Appearance: Alert, Oriented X3, Cooperative, No acute distress HEENT: Atraumatic, PERRLA, EOMI, Mucous membr. moist/pink Respiratory: Clear to auscultation, Normal air movement Cardiovascular: Regular rate, Normal S1, Normal S2, No murmurs Abdominal: Normal bowel sounds, Soft, No tenderness, No hepatospenomegaly Extremities: No clubbing, No cyanosis, No edema, Normal pulses Skin: No rashes, No breakdown, No significant lesion Neuro: Normal gait, Normal speech, Strength at 5/5 X4 ext, Normal tone Psych/Mental Status: Mental status NL, Mood NL Labs/Xrays Labs Test 10/10/24 21:08 10/10/24 19:38 10/10/24 18:38 Range/Units Urine Color Yellow Yellow Urine Clarity Clear Clear Urine pH 6.5 5.0-9.0 Urine Specific [place] 1.028 1.001-1.035 Urine Protein Trace H Negative Urine Ketones 1+ H Negative Urine Blood Negative Negative /uL Urine Nitrite Negative Negative Urine Bilirubin Negative Negative Urine Urobilinogen Normal Negative mg/dL Urine Leukocyte Esterase 1+ Negative /uL Urine RBC 1 0 - 4 /hpf Urine Microscopic WBC 7 H 0-5 /HPF Urine Squamous Epithelial Cells Few <5 /hpf Urine Bacteria Few H None Seen /hpf Urine Yeast (Budding) Occasional None Seen /hpf Urine Glucose 4+ H Normal mg/dL White Blood Count 11.9 H 4.4-10.8 10^3/uL Red Blood Count 4.98 4.0-5.20 10^6/uL Hemoglobin 16.2 12.2-16.2 g/dL Hematocrit 46.6 H 36.0-46.0 % Mean Corpuscular Volume 93.6 80.0-100.0 fL Mean Corpuscular Hemoglobin 32.6 H 28.0-32.0 pg Mean Corpuscular Hemoglobin Concent 34.8 32.0-36.0 g/dL Red Cell Distribution Width 13.4 11.8-14.3 % Platelet Count 198 140-450 10^3/uL Mean Platelet Volume 10.4 6.9-10.8 fL Neutrophils (%) (Auto) 64.0 37.0-80.0 % Lymphocytes (%) (Auto) 25.6 10.0-50.0 % Monocytes (%) (Auto) 6.5 0.0-12.0 % Eosinophils (%) (Auto) 3.2 0.0-7.0 % Basophils (%) (Auto) 0.7 0.0-2.0 % Neutrophils # (Auto) 7.6 1.6-8.6 10 ^3/uL Lymphocytes # (Auto) 3.0 0.4-5.4 10 ^3/uL Monocytes # (Auto) 0.8 0-1.3 10 ^3/uL Eosinophils # (Auto) 0.4 0-0.8 10 ^3/uL Basophils # (Auto) 0.1 0-0.2 10 ^3/uL Nucleated Red Blood Cells 0.1 % Sodium Level 138 136-145 mmol/L Potassium Level 4.8 3.5-5.1 mmol/L Chloride Level 100 98-107 mmol/L Carbon Dioxide Level 27 20-31 mmol/L Anion Gap 11 5-15 Blood Urea Nitrogen 14 9-23 mg/dL Creatinine 1.34 H 0.550-1.02 mg/dL Glomerular Filtration Rate Calc 42 >90 mL/min BUN/Creatinine Ratio 10.4 10.0-20.0 Serum Glucose 287 H 74-106 mg/dL Calcium Level 10.2 8.7-10.4 mg/dL Assessment/Plan Assessment/Plan Unstable angina, Moderate risk Unstable angina (SHAHRAM:3, DEBO: 105) --> significant history of diabetes, hyperlipidemia, and smoking history --> EKG unremarkable --> pending echo --> ? 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 Badillo Plan discussed with: Patient My Orders Orders - CHRIS WILLIS RESIDENT Procedure Category Date Status Time Admit ADMIT 10/10/24 Transmitted 21:10 Echo 2d Mode Cardiac US 10/10/24 Logged DOP 21:10 Condition: Fair ANGELA 10/10/24 In Process 21:10 Nitroglycerin PHA 10/10/24 Logged Sublingual (Ntrostat 21:15 Morphine Sulfate PHA 10/10/24 Logged Injection 21:15 Oxygen By Nasal RT 10/10/24 Transmitted Cannula 21:10 Stat Ekg For Chest ANGELA 10/10/24 In Process Pain 21:10 Notify Of Changes ANGELA 10/10/24 In Process From Base 21:10 Production Support Supervisor For ANGELA 10/10/24 In Process 24 Hours 21:10 Emergency Dysrhythmia ANGELA 10/10/24 In Process Protocol 21:10 Rhythm Strips Once ANGELA 10/10/24 In Process Every Shift 21:10 Hemoglobin A1c LAB 10/10/24 Logged 21:12 Urine Bacterial SHALA 10/10/24 Transmitted Culture 21:13 Glucose Blood PHA 10/10/24 Transmitted (Accu-Chek Comfort 22:00 Mild Sliding Scale PHA 10/10/24 Transmitted 22:00 Dextrose 50% Syringe PHA 10/10/24 Transmitted 21:15 Date of Service: Oct 10, 2024 Billing Provider: ANTONY BADILLO MD Common Visit Codes: 10200-VLVAWRX INP/OBS CARE (HIGH) Secondary Visit Codes: 26985-[id number] CARE PLAN 30 MINUTES CHRIS WILLIS RESIDENT Oct 10, 2024 21:18 ANTONY BADILLO MD Oct 11, 2024 17:31
[2024-10-10] MEDS: ACCU-CHEK COMFORT CURVE STRIP VI SCH (22:34)
[2024-10-10] MEDS: InsuLIN REG 1unit/0.01ml Soln (100units/ml) SC SCH (22:42)
[2024-10-10] MEDS: levoFLOXacin 500MG 100 ML IV ONE (22:42)
[2024-10-10] MEDS ORDERED: levoFLOXacin 500MG 100 ML IV ONE (23:30)
[2024-10-10 23:39] LABS: Albumin 4.8 g/dL (3.2-4.8); Bilirubin, Direct 0.2 mg/dL (<0.3); Magnesium 2.1 mg/dL (1.6-2.6); Total Protein 7.6 g/dL (5.7-8.2)
[2024-10-10 23:40] LABS: Bilirubin, Total 0.7 mg/dL (0.2-1.0)
--- NOTE | 2024-10-11 02:49 | DVHDSRES ---
Discharge Summary Date of Admission Resident Creating Document: MARIA ROCHA RESIDENT Oct 10, 2024 at 21:10 Date of Discharge: Oct 11, 2024 Labs/Diagnostic Data: Laboratory Results Test 10/10/24 22:34 10/10/24 21:08 10/10/24 19:38 10/10/24 18:38 POC Glucose 265 mg/dl (70-106) Phosphorus Level 3.0 mg/dL (2.4-5.1) Magnesium Level 2.1 mg/dL (1.6-2.6) Total Bilirubin 0.7 mg/dL (0.2-1.0) Direct Bilirubin 0.2 mg/dL (<0.3) Aspartate Amino Transferase (AST) 46 U/L (13-40) Alanine Aminotransferase (ALT) 47 U/L (7-40) Alkaline Phosphatase 277 U/L (46-116) Troponin I High Sensitivity < 3 ng/L (</=34) Total Protein 7.6 g/dL (5.7-8.2) Albumin 4.8 g/dL (3.2-4.8) Urine Color Yellow (Yellow) Urine Clarity Clear (Clear) Urine pH 6.5 (5.0-9.0) Urine Specific [place] 1.028 (1.001-1.035) Urine Protein Trace (Negative) Urine Ketones 1+ (Negative) Urine Blood Negative /uL (Negative) Urine Nitrite Negative (Negative) Urine Bilirubin Negative (Negative) Urine Urobilinogen Normal mg/dL (Negative) Urine Leukocyte Esterase 1+ /uL (Negative) Urine RBC 1 /hpf (0 - 4) Urine Microscopic WBC 7 /HPF (0-5) Urine Squamous Epithelial Cells Few /hpf (<5) Urine Bacteria Few /hpf (None Seen) Urine Yeast (Budding) Occasional /hpf (None Urine Glucose 4+ mg/dL (Normal) White Blood Count 11.9 10^3/uL (4.4-10.8) Red Blood Count 4.98 10^6/uL (4.0-5.20) Hemoglobin 16.2 g/dL (12.2-16.2) Hematocrit 46.6 % (36.0-46.0) Mean Corpuscular Volume 93.6 fL (80.0-100.0) Mean Corpuscular Hemoglobin 32.6 pg (28.0-32.0) Mean Corpuscular Hemoglobin Concent 34.8 g/dL (32.0-36.0) Red Cell Distribution Width 13.4 % (11.8-14.3) Platelet Count 198 10^3/uL (140-450) Mean Platelet Volume 10.4 fL (6.9-10.8) Neutrophils (%) (Auto) 64.0 % (37.0-80.0) Lymphocytes (%) (Auto) 25.6 % (10.0-50.0) Monocytes (%) (Auto) 6.5 % (0.0-12.0) Eosinophils (%) (Auto) 3.2 % (0.0-7.0) Basophils (%) (Auto) 0.7 % (0.0-2.0) Neutrophils # (Auto) 7.6 10 ^3/uL (1.6-8.6) Lymphocytes # (Auto) 3.0 10 ^3/uL (0.4-5.4) Monocytes # (Auto) 0.8 10 ^3/uL (0-1.3) Eosinophils # (Auto) 0.4 10 ^3/uL (0-0.8) Basophils # (Auto) 0.1 10 ^3/uL (0-0.2) Nucleated Red Blood Cells 0.1 % Sodium Level 138 mmol/L (136-145) Potassium Level 4.8 mmol/L (3.5-5.1) Chloride Level 100 mmol/L (98-107) Carbon Dioxide Level 27 mmol/L (20-31) Anion Gap 11 (5-15) Blood Urea Nitrogen 14 mg/dL (9-23) Creatinine 1.34 mg/dL (0.550-1.02) Glomerular Filtration Rate Calc 42 mL/min (>90) BUN/Creatinine Ratio 10.4 (10.0-20.0) Serum Glucose 287 mg/dL (74-106) Hemoglobin A1c 11.3 % A1C (<5.7) Calcium Level 10.2 mg/dL (8.7-10.4) Other Laboratory Tests 10/10/24 18:38 Brief Hx & Hospital Course: Radha Fournier is a 74 year old female patient who presents to ED with chief complaint of retrosternal nonradiating oppressive chest pain in functional class IV which lasted approximately 5 minutes, presented 3 episodes today, spontaneously resolved while at rest, with no exacerbating factors associated with dyspnea during episodes of chest pain. Patient also complaint of dysuria and urinary frequency. Patient said she never presented this pain previously, prompting her visit to urgent care where she was referred to the emergency room. Completed EKG which showed normal sinus rhythm with no ST alteration and old septal infarct, troponins x3 negative. Denies any other associated symptoms. Past medical history: Diabetes, dyslipidemia, psoriatic arthritis, rheumatoid arthritis, osteoporosis, presents chronic back pain, anemia, recurrent uti, urge incontinence, GERD and hypothyroidism Surgical history: Cholecystectomy Family history: Noncontributory Social history: [place] in [place] daughter who aids her, patient normally mobilizes with a cane. Ex tobacco abuse (40 pack-year history of smoking). Denies current tobacco, alcohol and other drug abuse Allergies: Penicillins Home medication: Alendronate 70 mg p.o. weekly, ferrous sulfate, metformin 1000 mg p.o. b.i.d., pantoprazole 40 mg p.o. daily, sucralfate 1 g p.o. q.i.d. Brief hospital course: Moderate risk Unstable angina (SHAHRAM:3, DEBO: 105) associated with AURA, transaminitis and UTI, receiving in ED indicating aspirin and atorvastatin. Recommended patient to stay in the hospital for further workup (which includes echocardiogram, stress test or left heart catheterization). Patient alert and oriented in three spheres, decides to leave against medical advice. Discussed risks of doing so which include progressing to myocardial infarction, cardiogenic shock, and even . Patient takes full responsibility of her own action and decides to leave against medical advice. DIAGNOSIS Moderate risk Unstable angina (SHAHRAM:3, DEBO: 105) UTI AURA hemodynamically mediated on CKD Dyslipidemia Diabetes - uncontrolled (hemoglobin A1c 11.3%) Transaminitis Psoriatic arthritis Rheumatoid arthritis Osteoporosis Chronic back pain - mobilizes with a cane GERD Hypothyroidism Goals of care discussed with patient for over 18 minutes: Full code status Discussed plan with Dr. Badillo, patient and nurses. Physical examination Patient lying in bed, in no acute distress General: Lucid, afebrile, mucosae are moist Cardiovascular: Normal S1 and S2. No murmurs, gallops or rubs Respiratory: Normal ventilation mechanics. Clear lung sounds on auscultation Abdomen: Soft, nontender, no organomegaly, normal bowel sounds MSK/skin: Mobilizes 4 limbs. Skin is dry and warm Neurological: Oriented in 3 spheres. No motor no sensitive deficits. Pupils are isocoric and reactive Operations or Procedures FINDINGS: Lines and Tubes: None Lungs: Clear Pleura: No effusion. No pneumothorax. Cardiomediastinal contours: Unremarkable IMPRESSION: No abnormality demonstrated. ATED BY: BOBBY TYLER MD DICTATED DATE/TIME: 10/10/241915 Condition at Discharge: Undetermined Final Diagnosis/Problems List Moderate risk Unstable angina (SHAHRAM:3, DEBO: 105) UTI AURA hemodynamically mediated on CKD Dyslipidemia Diabetes - uncontrolled (hemoglobin A1c 11.3%) Transaminitis Psoriatic arthritis Rheumatoid arthritis Osteoporosis Chronic back pain - mobilizes with a cane GERD Hypothyroidism Discharge Disposition: AMA SNF Discharge Will this Physician continue t: No Discharge Statement: "Patient was advised to return to the ER or call 911 if any headaches, dizziness, shortness of breath, chest pain, abdominal pain, bleeding, fevers, or worsening of medical condition. Patient was counseled about treatment plan, medications, possible side effects, patientverbalized understanding. All questions were answered to the best of my ability. This discharge took greater then 30 minutes in planning, reviewing documentation, counseling the patient, and discussing with other team members." ASSESSMENT ASSESSMENT Assessment Date of Service: Oct 11, 2024 Billing Provider: ANTONY BADILLO MD Common Visit Codes: 57461-BLV/OBS DISCH DAY >30min MARIA ROCHA RESIDENT Oct 11, 2024 02:49 ANTONY BADILLO MD Oct 11, 2024 17:29
[2024-10-11] MEDS ORDERED: levoFLOXacin 250MG 50 ML IV SCH (22:00)
== END 2024-10-10 22:47 | disposition left against medical advice (07) | DRG 311 ==
LOC: EDBD 17:49 → EDSEX 17:49 → ER 17:49 → EDUNIT# 17:49 → OVERFLOW 21:10
PROVIDERS: ADMIT Internal Medicine; ATTEND Internal Medicine
DX: I20.0 Unstable angina (principal); R65.10 Systemic inflammatory response syndrome (SIRS) of non-infectious origin without acute organ dysfunction; N39.0 Urinary tract infection, site not specified; N17.9 Acute kidney failure, unspecified; I24.9 Acute ischemic heart disease, unspecified; E03.9 Hypothyroidism, unspecified; E78.5 Hyperlipidemia, unspecified; G89.29 Other chronic pain; N18.9 Chronic kidney disease, unspecified; E11.22 Type 2 diabetes mellitus with diabetic chronic kidney disease; R74.01 Elevation of levels of liver transaminase levels; N39.41 Urge incontinence; L40.59 Other psoriatic arthropathy; K21.9 Gastro-esophageal reflux disease without esophagitis; M81.0 Age-related osteoporosis without current pathological fracture; M06.9 Rheumatoid arthritis, unspecified; Z88.0 Allergy status to penicillin; Z79.1 Long term (current) use of non-steroidal anti-inflammatories (NSAID); Z79.84 Long term (current) use of oral hypoglycemic drugs; Z79.899 Other long term (current) drug therapy; Z90.49 Acquired absence of other specified parts of digestive tract; Z87.891 Personal history of nicotine dependence; Z82.61 Family history of arthritis
CPT/HCPCS: 36415; 71045; 80048; 80076; 81001; 82962; 83036; 83735; 84100; 84484; 85025; 87086; 93005; 99291; G0378; J1815; J1956